=== PATIENT | female | born 1955 | race Caucasian/White ===

== ENCOUNTER 2016-11-01 22:42 | Emergency (ER) | payer OTHER ==
[~2016-11-01] VITALS: Ht 172.7 cm; Wt 89.0 kg
[~2016-11-01 22:42] MED LIST: IBUP800 PO; PERC5TAB12 PO; TAMS.4 PO
[2016-11-01 22:44] VITALS: BP 141/87; PULSE 100; RESP 20; TEMP 98.5; O2SAT 96
[2016-11-01] MEDS ORDERED: ONDANSETRON HCL 4 MG/2 ML VIAL IVP ONE (23:00)
[2016-11-01] MEDS ORDERED: SODIUM CHLORIDE 0.9% FLUSH 5 ML FLUSH IVF PRN (23:00)
[2016-11-01 23:01] VITALS: PULSE 100; RESP 18; O2SAT 95
[2016-11-01] MEDS ORDERED: MULT-65 PO ×2 (23:01)
[2016-11-01] MEDS: SODIUM CHLOR 0.9% 1000 ML INJ 1,000 ML IV SCH (23:13)
[2016-11-01 23:26] LABS: AUTOMATED NEUTROPHIL # 11.8 TH/MM3 (1.8-7.7); BASOPHIL # 0.1 TH/MM3 (0-0.2); BASOPHIL % 0.4 % (0.0-2.0); EOSINOPHIL # 0.2 TH/MM3 (0-0.4); EOSINOPHIL % 1.2 % (0.0-4.0); HEMATOCRIT 41.9 % (35.0-46.0); HEMO FLAGS DIFF FINAL; LYMPH % 10.8 % (9.0-44.0); LYMPHOCYTE # 1.6 TH/MM3 (1.0-4.8); MEAN CELL VOLUME 90.4 FL (80.0-100.0); MEAN CORPUSCULAR HEMOGLOBIN 30.3 PG (27.0-34.0); MEAN CORPUSCULAR HGB CONC 33.6 % (32.0-36.0); NEUT % 80.6 % (16.0-70.0); PLATELET COUNT 278 TH/MM3 (150-450); RED BLOOD COUNT 4.63 MIL/MM3 (4.00-5.30); RED CELL DISTRIBUTION WIDTH 13.7 % (11.6-17.2); WHITE BLOOD COUNT 14.7 TH/MM3 (4.0-11.0)
[2016-11-01 23:27] LABS: BLOOD, URINE TRACE (NEG); COMMENT (UR) CULT NOT INDICATED; CULTURE IF INDICATED CULT NOT INDICATED; GLUCOSE,URINE NEG (NEG); KETONE, URINE NEG (NEG); MUCUS URINE FEW /lpf (OCC); NITRITE,URINE NEG (NEG); PH, URINE 6.5 (5.0-8.5); SQUAMOUS EPITHELIAL CELL URINE 5 /hpf (0-5); URINE COLOR YELLOW (YELLW/STRAW)
[2016-11-01 23:41] LABS: ALT (GPT) 23 U/L (10-53); ANION GAP 9 MEQ/L (5-15); APTT (PATIENT) 26.4 SEC (24.3-30.1); AST (GOT) 14 U/L (15-37); BICARBONATE 24.6 MEQ/L (21.0-32.0); BLOOD UREA NITROGEN 19 MG/DL (7-18); CHLORIDE 109 MEQ/L (98-107); GLOMERULAR FILTRATION RATE 112 ML/MIN (>89); INTERNATIONAL NORMALIZED RATIO 0.9 RATIO; POTASSIUM 3.4 MEQ/L (3.5-5.1); PROTHROMBIN TIME - PATIENT 10.4 SEC (9.8-11.6); SODIUM (NA) 143 MEQ/L (136-145)
[2016-11-01 23:44] LABS: ALKALINE PHOSPHATASE 94 U/L (45-117); TOTAL BILIRUBIN ADULT 0.3 MG/DL (0.2-1.0)
[2016-11-01] MEDS ORDERED: KETOROLAC TROMETHAMINE 30 MG/ML (IVP) VIAL IV PUSH ONE (23:45)
--- NOTE | 2016-11-01 23:47 | PD ---
HPI Chief Complaint: GI Complaint Time Seen by Provider: 22:56 Travel History International Travel<30 days: No Contact w/Intl Traveler<30days: No Traveled to known affect area: No History of Present Illness HPI The patient is 60 year old female who presents to the [facility] emergency department with a history of abdominal pain that began at approximate 5 AM today. She reports that the abdominal pain is in the center of her abdomen and left lower quadrant. She reports that the pain is similar to when she's had diverticulitis in the past. She reports that she was diagnosed with diverticulitis 3 years ago. She reports that she was seen by Dr. Lopez for it. She denies having a primary care physician. She reports that over the holiday she did have some dietary indiscretions. She reports that today she's had diarrhea too many times to count. She reports that her stool is brown in color. She denies having any blood in her stool or mucus in her stool. She denies having any sick contacts, recent foreign travel, or antibiotic use in the last 3 months. She reports that she's had nausea and vomiting times one today. The patient reports that she's had a subjective fever today. The patient denies any recent cough, congestion, neck pain, chest pain, shortness of breath, urinary symptoms, or neurologic symptoms. [facility] Past Medical History Narrative Medical The patient's past medical history is significant for diverticulitis, history of a kidney stone. 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) Cardiovascular Problems: Yes High Cholesterol: No Chest Pain: No Congestive Heart Failure: No COPD: No Cerebrovascular Accident: No Diabetes: No Diminished Hearing: No Endocrine: No Gastrointestinal Disorders: Yes (nausea and vomiting currently) GERD: Yes Genitourinary: Yes (just current stone and UTI) Hepatitis: No Hiatal Hernia: No Immune Disorder: No Kidney Stones: No Musculoskeletal: Yes (two knee replacements) Neurologic: No Psychiatric: No Reproductive: No Respiratory: No Immunizations Current: Yes Migraines: No Renal Failure: No Seizures: No Sleep Apnea: No Thyroid Disease: No Ulcer: No Tetanus Vaccination: < 5 Years Influenza Vaccination: No Past Surgical History Narrative Surgical The patient's past surgical history is significant for a ureteral stent placement, lithotripsy. Abdominal Surgery: No AICD: No Body Medical Devices: knee replacements Cardiac Surgery: No Ear Surgery: No Endocrine Surgery: No Eye Surgery: No Genitourinary Surgery: No Gynecologic Surgery: Yes (PARTIAL HYSTERECTOMY) Hysterectomy: Yes Joint Replacement: Yes (BILAT KNEE) Oral Surgery: Yes (TONSILLECTOMY ) Pacemaker: No Thoracic Surgery: No Tonsillectomy: Yes Other Surgery: Yes (knee replacements, hysterectomy and rotator cuff) Social History Alcohol Use: No Tobacco Use: No Substance Use: No Allergies-Medications (Allergen,Severity, Reaction): Coded Allergies: Morphine (Verified Allergy, Severe, nausea and vomiting, 11/01/16) Percocet (Verified Allergy, Severe, nausea and vomiting, 11/01/16) Reported Meds & Prescriptions Reported Meds & Active Scripts Active Reported Multi-Vitamin Daily (Multiple Vitamin) 1 Tab Tab 1 Tab PO DAILY Review of Systems Except as stated in HPI: all other systems reviewed are Neg General / Constitutional: No: Fever Eyes: No: Visual changes HENT: No: Headaches Cardiovascular: No: Chest Pain or Discomfort Respiratory: No: Shortness of Breath Gastrointestinal: Positive: Nausea, Vomiting, Diarrhea, Abdominal Pain, Changes in Bowel Habits, No: Indigestion, Loss of Appetite Genitourinary: No: Dysuria Musculoskeletal: No: Pain Skin: No Rash Neurologic: No: Weakness Psychiatric: No: Depression Endocrine: No: Polydipsia Hematologic/Lymphatic: No: Easy Bruising Physical Exam Narrative General: The patient is a well-developed well-nourished female, uncomfortable appearing on examination, holding her central abdomen. Head and Neck exam: Head is normocephalic atraumatic. Eyes: EOMI, pupils are equal round and reactive to light. Nose: Midline septum with pink mucous membranes Mouth: Dentition unremarkable. Moist mucus membranes. Posterior oropharynx is not erythematous. No tonsillar hypertrophy. Uvula midline. Airway patent. Neck: No palpable lymphadenopathy. No nuchal rigidity. No thyromegaly. Cardiovascular: Regular rate and rhythm without murmurs, gallops, or rubs. No pulse deficit to the extremities. Lungs: Clear to auscultation bilaterally. No wheezes, rhonchi, or rales. Abdomen: Soft, with tenderness on palpation in the center abdomen periumbilical, no other tenderness on palpation. No tenderness on palpation of McBurney's point. No guarding, rebound, or rigidity. Negative Mobile sign. Normal bowel sounds are audible. Extremities: No clubbing, cyanosis, or edema. 2+ pulses in all 4 extremities. No calf tenderness on palpation. Back: No spinous process tenderness to palpation. No costovertebral angle tenderness to palpation. Neurologic Exam: Grossly nonfocal. Skin Exam: No rash noted. Intact skin that is warm and dry. Data Data Last Documented VS Vital Signs Date Time Temp Pulse Resp B/P Pulse Ox O2 Delivery O2 Flow Rate FiO2 11/01/16 23:01 100 18 95 11/01/16 22:44 98.5 141/87 Room Air Orders Complete Blood Count With Diff (11/01/16 22:56) Comprehensive Metabolic Panel (11/01/16 22:56) Lipase (11/01/16 22:56) Prothrombin Time / Inr (Pt) (11/01/16 22:56) Act Partial Throm Time (Ptt) (11/01/16 22:56) Urinalysis - C+S If Indicated (11/01/16 22:56) Ct Abd/Pel W Iv Contrast(Rout) (11/01/16 22:56) Iv Access Insert/Monitor (11/01/16 22:56) Ecg Monitoring (11/01/16 22:56) Oximetry (11/01/16 22:56) Ondansetron Inj (Zofran Inj) (11/01/16 23:00) Sodium Chlor 0.9% 1000 Ml Inj (Ns 1000 M (11/01/16 22:56) Sodium Chloride 0.9% Flush (Ns Flush) (11/01/16 23:00) Electrocardiogram (11/01/16 22:56) C-Reactive Protein (Crp) (11/01/16 22:56) Ketorolac Inj (Toradol Inj) (11/01/16 23:45) Iohexol 350 Inj (Omnipaque 350 Inj) (11/01/16 23:59) Levofloxacin (Levaquin) (11/02/16 09:00) Metronidazole 500 Mg Inj (Flagyl 500 Mg (11/02/16 01:30) Sodium Chlor 0.9% 1000 Ml Inj (Ns 1000 M (11/02/16 01:30) Labs Laboratory Tests Test 11/01/16 23:10 White Blood Count 14.7 TH/MM3 Red Blood Count 4.63 MIL/MM3 Hemoglobin 14.0 GM/DL Hematocrit 41.9 % Mean Corpuscular Volume 90.4 FL Mean Corpuscular Hemoglobin 30.3 PG Mean Corpuscular Hemoglobin 33.6 % Concent Red Cell Distribution Width 13.7 % Platelet Count 278 TH/MM3 Mean Platelet Volume 8.8 FL Neutrophils (%) (Auto) 80.6 % Lymphocytes (%) (Auto) 10.8 % Monocytes (%) (Auto) 7.0 % Eosinophils (%) (Auto) 1.2 % Basophils (%) (Auto) 0.4 % Neutrophils # (Auto) 11.8 TH/MM3 Lymphocytes # (Auto) 1.6 TH/MM3 Monocytes # (Auto) 1.0 TH/MM3 Eosinophils # (Auto) 0.2 TH/MM3 Basophils # (Auto) 0.1 TH/MM3 CBC Comment DIFF FINAL Differential Comment Prothrombin Time 10.4 SEC Prothromb Time International 0.9 RATIO Ratio Activated Partial 26.4 SEC Thromboplast Time Urine Color YELLOW Urine Turbidity HAZY Urine pH 6.5 Urine Specific [place] 1.010 Urine Protein NEG mg/dL Urine Glucose (UA) NEG mg/dL Urine Ketones NEG mg/dL Urine Occult Blood TRACE Urine Nitrite NEG Urine Bilirubin NEG Urine Urobilinogen LESS THAN 2.0 MG/DL Urine Leukocyte Esterase TRACE Urine RBC 2 /hpf Urine WBC 3 /hpf Urine Squamous Epithelial 5 /hpf Cells Urine Mucus FEW /lpf Microscopic Urinalysis Comment CULT NOT INDICATED Sodium Level 143 MEQ/L Potassium Level 3.4 MEQ/L Chloride Level 109 MEQ/L Carbon Dioxide Level 24.6 MEQ/L Anion Gap 9 MEQ/L Blood Urea Nitrogen 19 MG/DL Creatinine 0.55 MG/DL Estimat Glomerular Filtration 112 ML/MIN Rate Random Glucose 108 MG/DL Calcium Level 9.3 MG/DL Total Bilirubin 0.3 MG/DL Aspartate Amino Transf 14 U/L (AST/SGOT) Alanine Aminotransferase 23 U/L (ALT/SGPT) Alkaline Phosphatase 94 U/L C-Reactive Protein LESS THAN 0.29 MG/DL Total Protein 7.3 GM/DL Albumin 4.0 GM/DL Lipase 228 U/L [facility] Medical Decision Making Medical Screen Exam Complete: Yes Emergency Medical Condition: Yes Medical Record Reviewed: Yes Differential Diagnosis Diverticulitis, versus pancreatitis, versus acute cholecystitis, versus biliary colic, versus kidney stone, versus pyelonephritis Narrative Course During the course of the patients emergency department visit, the patients history, examination, and differential diagnosis were reviewed with the patient. The patient had IV access obtained and blood work sent for analysis. An EKG was done. The patient was placed on a chip person with oximetry and blood pressure monitoring. The patient's EKG shows a sinus rhythm heart rate 96 ) no branch block, left anterior fascicular block, this is compared to a prior EKG done at this facility in April 2016 and it is unchanged. The patient was provided normal saline 1 L IV fluid bolus, Toradol for pain, Zofran for nausea. The patients laboratory studies were reviewed and remarkable for a white count of 14.7, hemoglobin 14, platelets 278 with 80.6 neutrophils. CMP is remarkable for potassium of 3.4, chloride 109, BUN 19, glucose 108, AST 14, C- reactive protein less than 0.29, lipase 228, PT PTT unremarkable, urinalysis shows trace occult blood trace leukocyte esterase otherwise unremarkable. Radiology studies were reviewed and remarkable for CT scan of the abdomen and pelvis reveals mild inflammatory process involving the splenic flexure, no obstruction perforation or abscess, long-term stable 2.3 cm splenic artery aneurysm. The patient was started on Levaquin 500 mg by mouth times one, Flagyl 500 mg IV. The patient was given an additional normal saline 1 L IV fluid bolus. The patient's results were discussed with her, her questions were answered. The patient will be given a prescription for Cipro and Flagyl and discharged home to follow-up with her colorectal specialist, Dr. Lopez. The patient is resting comfortably and feels better, is alert and in no distress. The patients results and examination findings were discussed with the patient. The repeat examination is unremarkable and benign. The history, exam, diagnostic testing, and current condition do not suggest any significant pathology to warrant further testing, continued ED treatment, admission, or surgical evaluation at this point. The vital signs have been stable. The patient does not have uncontrollable pain, intractable vomiting, or other significant symptoms. The patient's condition is stable and appropriate for discharge. The patient will pursue further outpatient evaluation with a primary care physician or other designated or consulting physician as indicated in the discharge instructions. The patient expressed understanding and was agreeable with this plan. Diagnosis Primary Impression: Diverticulitis large intestine Qualified Code: K57.32 - Diverticulitis of large intestine without perforation or abscess without bleeding Referrals: Octavia Lopez MD 2 days Patient Instructions: Diverticulitis (ED), General Instructions Scripts Ondansetron Odt (Zofran Odt)4 Mg Tab4 Mg SL Q6HR PRN (Nausea/Vomiting) #7 TAB Ref 0 Prov:Shauna Valenzuela MD 11/02/16 Metronidazole (Flagyl)500 Mg Dxt507 Mg PO TID 7 Days Ref 0 Prov:Shauna Valenzuela MD 11/02/16 Ciprofloxacin (Cipro)500 Mg Mku675 Mg PO BID 7 Days Ref 0 Prov:Shauna Valenzuela MD 11/02/16 Disposition: 01 DISCHARGE HOME Condition: Stable Shauna Valenzuela MD Nov 01, 2016 23:47
[2016-11-01] MEDS ORDERED: IOHEXOL 350 MG/ML 10 ML VIAL (for RAD DIAG) IV ONE (23:59)
[2016-11-02] MEDS: SODIUM CHLOR 0.9% 1000 ML INJ 1,000 ML IV SCH ×2 (00:14→01:45)
--- NOTE | 2016-11-02 00:31 | RADRPT ---
EXAM DATE/TIME: 11/01/2016 23:57 [facility] COMPARISON: CT ABDOMEN & PELVIS W CONTRAST, November 24, 2013, 13:35. CT ABDOMEN & PELVIS W CONTRAST, April 24 16, 20:19. INDICATIONS : Abdominal pain with nausea, vomiting and diarrhea. IV CONTRAST: 91 cc Omnipaque 350 (iohexol) IV ORAL CONTRAST: No oral contrast ingested. RADIATION DOSE: 17.42 CTDIvol (mGy) MEDICAL HISTORY : Gastroesophageal reflux disease. Renal calculi. SURGICAL HISTORY : Hysterectomy. ENCOUNTER: Initial ACUITY: 1 day PAIN SCALE: 8/10 LOCATION: Bilateral abdomen. TECHNIQUE: Volumetric scanning of the abdomen and pelvis was performed. Using automated exposure control and ad justment of the mA and/or kV according to patient size, radiation dose was kept as low as reasonably achievable to obtain optimal diagnostic quality images. FINDINGS: LOWER LUNGS: The visualized lower lungs are clear. LIVER: Homogeneous density without lesion. There is no dilation of the biliary tree. No calcified gallston es. SPLEEN: Normal size without lesion. A 2.3 cm aneurysm is seen involving the splenic artery. This is a long-te rm stable. PANCREAS: Within normal limits. KIDNEYS: Normal in size and shape. There is no mass, stone or hydronephrosis. Long-term stable right renal cy sts. ADRENAL GLANDS: Within normal limits. VASCULAR: There is no aortic aneurysm. BOWEL/MESENTERY: There is mild wall thickening involving the splenic flexure. No stranding in the adjacent fat. Scatte red diverticuli are noted. Small bowel and stomach are unremarkable. ABDOMINAL WALL: Within normal limits. RETROPERITONEUM: There is no lymphadenopathy. BLADDER: No wall thickening or mass. REPRODUCTIVE: Within normal limits. INGUINAL: There is no lymphadenopathy or hernia. MUSCULOSKELETAL: Within normal limits for patient age. CONCLUSION: 1. Mild inflammatory process involving the splenic flexure. No obstruction, perforation, or abscess. 2. Long-term stable 2.3 cm splenic artery aneurysm. Edmond Griffin Jr., MD on November 02, 2016 at 0:25 Board Certified Radiologist. This report was verified electronically.
[2016-11-02] MEDS ORDERED: ZOFR4TAB3 SL (01:30)
[2016-11-02] MEDS ORDERED: metroNIDAZOLE 500 MG INJ 100 ML IV ONE (01:30)
[2016-11-02] MEDS ORDERED: SODIUM CHLOR 0.9% 1000 ML INJ 1,000 ML IV ONE (01:30)
[2016-11-02] MEDS ORDERED: METR-1 PO (01:30)
[2016-11-02] MEDS ORDERED: CIPR-9 PO (01:30)
[2016-11-02] MEDS ORDERED: LEVOFLOXACIN 500 MG TAB PO SCH (09:00)
--- NOTE | 2016-11-02 18:25 | EKG ---
Date Performed: 11/01/2016 Time Performed: 23:08:44 PTAGE: 60 years EKG: Sinus rhythm RIGHT BUNDLE BRANCH BLOCK LEFT ANTERIOR FASCICULAR BLOCK Since previous tracing, no significant calix ge noted ABNORMAL ECG PREVIOUS TRACING : 04/25/2016 10.18 DOCTOR: Roxann Hutton Interpretating Date/Time 11/02/2016 18:23:12
[2016-11-03] MEDS ORDERED: CIPR-9 PO (15:58)
[2016-11-03] MEDS ORDERED: ZOFR4TAB3 SL (15:58)
[2016-11-03] MEDS ORDERED: DICY10 PO (15:58)
[2016-11-03] MEDS ORDERED: METR-1 PO (15:58)
== END 2016-11-02 02:19 | disposition home or self-care (01) ==
LOC: NEPE 22:42
DX: K57.32 Diverticulitis of large intestine without perforation or abscess without bleeding (principal); M19.90 Unspecified osteoarthritis, unspecified site; K21.9 Gastro-esophageal reflux disease without esophagitis; Z96.653 Presence of artificial knee joint, bilateral; Z96.698 Presence of other orthopedic joint implants; Z87.442 Personal history of urinary calculi; R94.31 Abnormal electrocardiogram [ECG] [EKG]
CPT/HCPCS: 74177; 80053; 81001; 83690; 85025; 85610; 85730; 86140; 93005; 96361; 96374; 96375; 99284; J1885; J2405; J7030; Q9967

== ENCOUNTER 2016-11-02 11:19 | Observation (INO) | payer OTHER ==
[~2016-11-02] VITALS: Ht 172.7 cm; Wt 90.5 kg
[~2016-11-02 11:19] MED LIST changes: +CIPR-9 PO; +METR-1 PO; +MULT-65 PO; +ZOFR4TAB3 SL
[2016-11-02 11:22] VITALS: BP 142/86; PULSE 107; RESP 14; TEMP 98.7; O2SAT 96
[2016-11-02] MEDS ORDERED: SODIUM CHLOR 0.9% 1000 ML INJ 1,000 ML IV SCH ×2 (11:48)
--- NOTE | 2016-11-02 11:56 | PD ---
HPI Chief Complaint: GI Complaint Time Seen by Provider: 11:31 Travel History International Travel<30 days: No Contact w/Intl Traveler<30days: No Traveled to known affect area: No History of Present Illness HPI This 5-year-old woman who is been sick with nausea vomiting diarrhea ongoing for several days. She has a history diverticulitis with abscess in the past. She states she's been nauseous for a little bit but then 2 days ago started getting nausea and vomiting more severe so she was severe abdominal pain followed by copious watery diarrhea. She was seen in the emergency department last night where she had a CT scan that showed some inflammation of the splenic flexure of the colon and she was diagnosed with diverticulitis. She is given medications but was unable to fill them in the middle the night because of pharmacy was closed. She states she's had continuous nausea vomiting, unable tolerate by mouth, and copious watery diarrhea since. She presents back to emergency department complaining same symptoms as well as ongoing abdominal pain. History Past Medical History Narrative Medical History of diverticulitis Social History Alcohol Use: No Tobacco Use: No Allergies-Medications (Allergen,Severity, Reaction): Coded Allergies: Morphine (Verified Allergy, Severe, nausea and vomiting, 11/02/16) Percocet (Verified Allergy, Severe, nausea and vomiting, 11/02/16) Reported Meds & Prescriptions Reported Meds & Active Scripts Active Zofran Odt (Ondansetron Odt) 4 Mg Tab 4 Mg SL Q6HR PRN Flagyl (Metronidazole) 500 Mg Tab 500 Mg PO TID 7 Days Cipro (Ciprofloxacin HCl) 500 Mg Tab 500 Mg PO BID 7 Days Reported Multi-Vitamin Daily (Multiple Vitamin) 1 Tab Tab 1 Tab PO DAILY Review of Systems Except as stated in HPI: all other systems reviewed are Neg Physical Exam Narrative GENERAL: Well-appearing 60-year-old woman, no acute distress. SKIN: Warm and dry. HEAD: Atraumatic. Normocephalic. NECK: Trachea midline. No JVD. CARDIOVASCULAR: Regular rate and rhythm. No murmur appreciated. RESPIRATORY: No accessory muscle use. Clear to auscultation. Breath sounds equal bilaterally. GASTROINTESTINAL: Abdomen soft, non-tender, nondistended. Hepatic and splenic margins not palpable. MUSCULOSKELETAL: No obvious deformities. No edema. NEUROLOGICAL: Awake and alert. No obvious cranial nerve deficits. Motor grossly within normal limits. Normal speech. Data Data Last Documented VS Vital Signs Date Time Temp Pulse Resp B/P Pulse Ox O2 Delivery O2 Flow Rate FiO2 11/02/16 11:52 16 11/02/16 11:22 98.7 107 142/86 96 Room Air Orders Basic Metabolic Panel (Bmp) (11/02/16 11:48) Complete Blood Count With Diff (11/02/16 11:48) Iv Access Insert/Monitor (11/02/16 11:48) Ondansetron Inj (Zofran Inj) (11/02/16 12:00) Sodium Chlor 0.9% 1000 Ml Inj (Ns 1000 M (11/02/16 11:48) Sodium Chlor 0.9% 1000 Ml Inj (Ns 1000 M (11/02/16 11:48) Sodium Chloride 0.9% Flush (Ns Flush) (11/02/16 12:00) Dicyclomine Inj (Bentyl Inj) (11/02/16 12:00) Admit Order (Ed Use Only) (11/02/16 ) Labs Laboratory Tests Test 11/02/16 12:00 White Blood Count 13.1 TH/MM3 Red Blood Count 4.83 MIL/MM3 Hemoglobin 14.7 GM/DL Hematocrit 43.4 % Mean Corpuscular Volume 89.8 FL Mean Corpuscular Hemoglobin 30.5 PG Mean Corpuscular Hemoglobin 34.0 % Concent Red Cell Distribution Width 13.6 % Platelet Count 271 TH/MM3 Mean Platelet Volume 9.1 FL Neutrophils (%) (Auto) 84.3 % Lymphocytes (%) (Auto) 6.9 % Monocytes (%) (Auto) 8.3 % Eosinophils (%) (Auto) 0.1 % Basophils (%) (Auto) 0.4 % Neutrophils # (Auto) 11.0 TH/MM3 Lymphocytes # (Auto) 0.9 TH/MM3 Monocytes # (Auto) 1.1 TH/MM3 Eosinophils # (Auto) 0.0 TH/MM3 Basophils # (Auto) 0.1 TH/MM3 CBC Comment DIFF FINAL Differential Comment Sodium Level 140 MEQ/L Potassium Level 3.5 MEQ/L Chloride Level 106 MEQ/L Carbon Dioxide Level 25.4 MEQ/L Anion Gap 9 MEQ/L Blood Urea Nitrogen 13 MG/DL Creatinine 0.54 MG/DL Estimat Glomerular Filtration 115 ML/MIN Rate Random Glucose 137 MG/DL Calcium Level 9.0 MG/DL [facility] Medical Decision Making Medical Screen Exam Complete: Yes Emergency Medical Condition: Yes Interpretation(s) LABS: CBC remarkable for mild leukocytosis. BMP is unremarkable. Differential Diagnosis Diverticulitis, colitis, infection, C. difficile, other Narrative Course Medical decision making INITIAL: 60-year-old with nausea vomiting diarrhea abdominal pain, CT scan shows a little bit of inflammation splenic flexure of the colon, leukocytosis, here with ongoing symptoms. She was well. She has generalized abdominal tenderness. Possibly diverticulitis versus colitis. No recent antibiotic use or healthcare exposures to suggest C. difficile. We'll repeat basic labs, IV fluids, pain medicine, likely admission for observation. Diagnosis Primary Impression: Diverticulitis large intestine Qualified Code: K57.32 - Diverticulitis of large intestine without perforation or abscess without bleeding Additional Impression: Dehydration Admitting Information Admitting Physician Requests: Observation Zoran Diallo MD Nov 02, 2016 11:56 Zoran Diallo MD Nov 02, 2016 11:56
[2016-11-02] MEDS ORDERED: SODIUM CHLORIDE 0.9% FLUSH 5 ML FLUSH IVF PRN (12:00)
[2016-11-02] MEDS ORDERED: DICYCLOMINE HCL 20 MG/2 ML VIAL IM ONE (12:00)
[2016-11-02] MEDS ORDERED: ONDANSETRON HCL 4 MG/2 ML VIAL IVP ONE (12:00)
[2016-11-02 12:18] LABS: BASOPHIL # 0.1 TH/MM3 (0-0.2); BASOPHIL % 0.4 % (0.0-2.0); EOSINOPHIL % 0.1 % (0.0-4.0); HEMATOCRIT 43.4 % (35.0-46.0); HEMO FLAGS DIFF FINAL; LYMPH % 6.9 % (9.0-44.0); LYMPHOCYTE # 0.9 TH/MM3 (1.0-4.8); MEAN CELL VOLUME 89.8 FL (80.0-100.0); MEAN CORPUSCULAR HEMOGLOBIN 30.5 PG (27.0-34.0); MONO % 8.3 % (0.0-8.0); NEUT % 84.3 % (16.0-70.0); PLATELET COUNT 271 TH/MM3 (150-450); RED BLOOD COUNT 4.83 MIL/MM3 (4.00-5.30); RED CELL DISTRIBUTION WIDTH 13.6 % (11.6-17.2); WHITE BLOOD COUNT 13.1 TH/MM3 (4.0-11.0)
[2016-11-02 12:34] LABS: BICARBONATE 25.4 MEQ/L (21.0-32.0); POTASSIUM 3.5 MEQ/L (3.5-5.1)
--- NOTE | 2016-11-02 16:26 | HHI.HP ---
HPI Service Family Medicine Primary Care Physician No Primary Care Physician Admission Diagnosis diverticulitis/colitis, dehydration Diagnoses: International Travel<30 Days: No Contact w/Intl Traveler<30days: No Known Affected Area: No History of Present Illness This is a 60-year-old female with a past medical history of diverticulitis returns to [facility] less than one day after being seen and discharged for the same symptoms. The patient states she started having pain approximately 2 days ago "at 5 AM." Her pain was mid abdominal, 10 out of 10, constant achy, no radiation. She has vomited and had diarrhea "countless times." She has not been able to keep anything down by mouth since 10/31. Everything she eats or drinks she vomits. She was first diagnosed with diverticulitis in 2012. She follows with a colorectal surgeon Dr. Lopez. He was seen at [facility] on 11/01/[address] was performed which showed mild inflammatory process involving the splenic flexure. No obstruction, perforation, or abscess. She was sent home on Levaquin and metronidazole. She was instructed to follow with her colorectal specialist Dr. Lopez. However, she returned because of the recurrent nausea , vomiting, abdominal pain. (Roland Yost MD R2) Review of Systems Constitutional: COMPLAINS OF: Fever (99.0-100.0 at home), Chills Eyes: DENIES: Blurred vision, Diplopia Ears, nose, mouth, throat: DENIES: Tinnitus, Hearing loss Respiratory: DENIES: Cough, Shortness of breath Cardiovascular: DENIES: Chest pain, Syncope Gastrointestinal: COMPLAINS OF: Abdominal pain, Diarrhea, Nausea, Vomiting, DENIES: Bloody stools Genitourinary: DENIES: Urinary frequency, Urinary incontinence, Hematuria, Dysuria Neurologic: DENIES: Abnormal gait, Headache Psychiatric: DENIES: Anxiety, Confusion (Roland Yost MD R2) Past Family Social History Past Medical History Diverticulitis- 2012, follows with Colorectal Dr. Lopez Kidney Stone Past Surgical History Hysterectomy and tonsillectomy Rotator cuff Knee replacement bilaterally Reported Medications Reported Meds & Active Scripts Active Zofran Odt (Ondansetron Odt) 4 Mg Tab 4 Mg SL Q6HR PRN Flagyl (Metronidazole) 500 Mg Tab 500 Mg PO TID 7 Days Cipro (Ciprofloxacin HCl) 500 Mg Tab 500 Mg PO BID 7 Days Reported Multi-Vitamin Daily (Multiple Vitamin) 1 Tab Tab 1 Tab PO DAILY (Roland Yost MD R2) Allergies: Coded Allergies: Morphine (Verified Allergy, Severe, nausea and vomiting, 11/02/16) Percocet (Verified Allergy, Severe, nausea and vomiting, 11/02/16) Active Ordered Medications Active Medications Dicyclomine HCl (Bentyl Inj) 20 mg ONCE ONCE IM Last administered on 11/02/16 12:02; Admin Dose 20 MG; Start 11/02/16 at 12:00; Stop 11/02/16 at 12:01; Status DC IV Flush (NS Flush) 2 ml UNSCH PRN IVF; Start 11/02/16 at 12:00 Ondansetron HCl 4 mg 4 mg ONCE ONCE IVP Last administered on 11/02/16 12:02; Admin Dose 4 MG; Start 11/02/16 at 12:00; Stop 11/02/16 at 12:01; Status DC Sodium Chloride 1,000 ml @ 125 mls/hr Q8H IV Last administered on 11/02/16 12: 57; Admin Dose 125 MLS/HR; Start 11/02/16 at 11:48; Stop 11/02/16 at 19:47 Sodium Chloride (NS 1000 ml Inj) 1,000 ml @ 1,000 mls/hr Q1H IV Last administered on 11/02/16 11:48; Admin Dose 1,000 MLS/HR; Start 11/02/16 at 11:48 ; Stop 11/02/16 at 12:47; Status DC Family History Mom: brain aneurysm Dad: healthy (passed from car accident) 3 children; oldest with MS; other 2 healthy Lives with Social History Never smoker Glass of wine every now and then No illicits drugs (Roland Yost MD R2) Physical Exam Vital Signs Vital Signs Date Time Temp Pulse Resp B/P Pulse Ox O2 Delivery O2 Flow Rate FiO2 11/02/16 11:52 16 11/02/16 11:22 98.7 107 14 142/86 96 Room Air Physical Exam GENERAL: This is a well-nourished, well-developed patient, in no apparent distress. SKIN: No rashes, ecchymoses or lesions. Cool and dry. HEAD: Atraumatic. Normocephalic. No temporal or scalp tenderness. EYES: Pupils equal round and reactive. Extraocular motions intact. No scleral icterus. No injection or drainage. ENT: Nose without bleeding, purulent drainage or septal hematoma. Throat without erythema, tonsillar hypertrophy or exudate. Uvula midline. Airway patent. NECK: Trachea midline. No JVD or lymphadenopathy. Supple, nontender, no meningeal signs. CARDIOVASCULAR: Regular rate and rhythm without murmurs, gallops, or rubs. RESPIRATORY: Clear to auscultation. Breath sounds equal bilaterally. No wheezes , rales, or rhonchi. GASTROINTESTINAL: Abdomen soft, diffusely tender to palpation in mid abdomen, nondistended. No hepato-splenomegaly, or palpable masses. No guarding. MUSCULOSKELETAL: Extremities without clubbing, cyanosis, or edema. No joint tenderness, effusion, or edema noted. No calf tenderness. Negative Homans sign bilaterally. NEUROLOGICAL: Awake and alert. Cranial nerves II through XII intact. Motor and sensory grossly within normal limits. Five out of 5 muscle strength in all muscle groups. Normal speech. Laboratory Laboratory Tests Test 11/02/16 12:00 White Blood Count 13.1 Red Blood Count 4.83 Hemoglobin 14.7 Hematocrit 43.4 Mean Corpuscular Volume 89.8 Mean Corpuscular Hemoglobin 30.5 Mean Corpuscular Hemoglobin 34.0 Concent Red Cell Distribution Width 13.6 Platelet Count 271 Mean Platelet Volume 9.1 Neutrophils (%) (Auto) 84.3 Lymphocytes (%) (Auto) 6.9 Monocytes (%) (Auto) 8.3 Eosinophils (%) (Auto) 0.1 Basophils (%) (Auto) 0.4 Neutrophils # (Auto) 11.0 Lymphocytes # (Auto) 0.9 Monocytes # (Auto) 1.1 Eosinophils # (Auto) 0.0 Basophils # (Auto) 0.1 CBC Comment DIFF FINAL Differential Comment Sodium Level 140 Potassium Level 3.5 Chloride Level 106 Carbon Dioxide Level 25.4 Anion Gap 9 Blood Urea Nitrogen 13 Creatinine 0.54 Estimat Glomerular Filtration 115 Rate Random Glucose 137 Calcium Level 9.0 (Roland Yost MD R2) Result Diagram: 11/02/16 1200 11/02/[address] scan on 11/01/16-mild inflammatory process involving the splenic flexure. No obstruction, perforation, or abscess. (Roland Yost MD R2) Assessment and Plan Assessment and Plan 60-year-old female with known diverticulitis/colitis returns to [facility] with recurrent nausea, vomiting, abdominal pain. She will be admitted for these intractable symptoms and for antibiotic therapy. Code Status Full Discussed Condition With Dr. Priyank Key (Roland Yost MD R2) Attending Attestation Patient seen and examined. Case reviewed and discussed with the resident team. Agree with plan of care as discussed with me and documented in the resident note. (Maggie Yost MD) Problem List: (1) Diverticulitis large intestine Status: Acute Plan: CT scan on 11/01/2016 shows mild inflammatory process involving the splenic flexure. No obstruction, perforation, or abscess. She returns to [facility] with intractable nausea, vomiting, pain, and unable to keep anything by mouth -Ciprofloxacin 400 mg every 12 hours IV -Metronidazole 500 mg every 6 hours IV -Pain control: Dilaudid 1 mg every 3 hours when necessary pain 6-10, ibuprofen 600 mg every 8 hours pain 1-5. Dilaudid 0.5 mg IV breakthrough pain -Bentyl 20 mg by mouth 4 times a day -Normal saline at 140 ml/hr -She will need to make an appointment with her colorectal surgeon, Dr. Lopez as an outpatient. (2) FEN/PPX Status: Acute Plan: Fluids: Normal saline at 140 ML per hour Electrolyte: Monitor and replace when necessary Nutrition: Clear liquid diet; advance as tolerated Prophylaxis: Bilateral SCDs. (Roland Yost MD R2) Physician Certification 2 Midnight Certification Type: Admission for Inpatient Services Order for Inpatient Services The services are ordered in accordance with Medicare regulations or non- Medicare payer requirements, as applicable. In the case of services not specified as inpatient-only, they are appropriately provided as inpatient services in accordance with the 2-midnight benchmark. Estimated LOS (days): 2 days is the estimated time the patient will need to remain in the hospital, assuming treatment plan goals are met and no additional complications. Post-Hospital Plan: Home (Roland Yost MD R2) Problem Qualifiers (1) Diverticulitis large intestine: Qualified Code: K57.32 - Diverticulitis of large intestine without perforation or abscess without bleeding Roland Yost MD R2 Nov 02, 2016 16:26 Maggie Yost MD Nov 03, 2016 14:05
[2016-11-02] MEDS ORDERED: HYDROmorphone HCL PF 1 MG/ML VIAL IV PRN (17:15)
[2016-11-02] MEDS ORDERED: TEMAZEPAM 15 MG CAP PO PRN (17:15)
[2016-11-02] MEDS ORDERED: SODIUM CHLORIDE 0.9% FLUSH 5 ML FLUSH FLUSH PRN (17:15)
[2016-11-02] MEDS ORDERED: hydrALAZINE HCL 10 MG TAB PO PRN (17:15)
[2016-11-02] MEDS ORDERED: HYDROmorphone HCL PF 1 MG/ML VIAL IV PUSH PRN (17:15)
[2016-11-02] MEDS ORDERED: IBUPROFEN 600 MG TAB PO PRN (17:15)
--- NOTE | 2016-11-02 17:23 | HHI.FPPN ---
Subjective Remarks Pt. seen, examined and discussed with Drs. Key and Priyank. This is a 60 yo female with long history of diverticulitis who was seen in ED yesterday with severe abdominal pain, nausea and vomiting and sent home after midnight with scripts for pain and antibiotics, which she was unable to fill because it was the middle of the night. She returned to ED to day because of persisting severe pain, nausea and vomiting which was in mid- abdomen. Denies hematemesis or melena or hematochezia. Low grade fever and chills. History of hospitalizations for this in the past, is followed by Dr. Octavia Lopez. Sees an OB-SKIVER BOX TOE at [facility]-Box To[facility]. Hx of kidney stone. Hysterectomy in past, bilateral knee replacements and rotator cuff surgery. See H&P for this admission for past, family and social history. She lives with , cares for grands, doesn't work outside the home, negligible etoh, no tobacco or illicits. Hx of breast CA and testicular CA and MS in family. Objective Vitals Vital Signs Date Time Temp Pulse Resp B/P Pulse Ox O2 Delivery O2 Flow Rate FiO2 11/02/16 11:52 16 11/02/16 11:22 98.7 107 14 142/86 96 Room Air Result Diagram: 11/02/16 1200 11/02/[address] 11-01-16 showed inflammation in splenic flexure of colon Objective Remarks O. CONSTITUTIONAL/GEN: normally nourished, in distress with nausea and abdominal pain. EYES: conjunctiva normal, PERRLA, EOMI. ENT: Mouth and pharynx normal. MM slightly dry. NECK: thyroid midline, no lymphadenopathy. LUNGS: clear A-P, respiratory effort is normal. CARDIOVASCULAR: RR without murmur or gallop. No significant edema. GI/ABD: soft without masses, without organomegaly. BS +, tender midabdominal area with guarding to palpation. : no CVA tenderness NEURO: No focal deficits. SKIN: color normal, no rashes noted. HEME/LYMPH: no bruising, petechia or significant adenopathy MUSC: back is normal in appearance. Extremities are normal in appearance. PSYCH/MENTAL STATUS: Alert and oriented x 3. A/P Assessment and Plan 60 yo female with history of diverticulitis here with severe abdominal pain, nausea and vomiting Attending Attestation Patient seen and examined. Case reviewed and discussed with the resident team. Agree with plan of care as discussed with me and documented in the resident note. Maggie Yost MD Nov 02, 2016 17:23
[2016-11-02] MEDS: SODIUM CHLOR 0.9% 1000 ML INJ 1,000 ML IV SCH (17:25)
[2016-11-02] MEDS: ONDANSETRON HCL 4 MG/2 ML VIAL IV PUSH PRN (17:26)
[2016-11-02 17:46] VITALS: BP 130/66; PULSE 95; RESP 18; O2SAT 96
[2016-11-02 18:24] VITALS: BP 142/83; PULSE 97; RESP 20; TEMP 99; O2SAT 94
[2016-11-02] MEDS: DICYCLOMINE HCL 10 MG CAP PO SCH ×2 (18:40→21:03)
[2016-11-02] MEDS: CIPROFLOXACIN 400 MG PREMIX 200 ML IV SCH (18:57)
[2016-11-02] MEDS: SODIUM CHLORIDE 0.9% FLUSH 5 ML FLUSH FLUSH SCH (21:00)
[2016-11-02] MEDS: metroNIDAZOLE 500 MG INJ 100 ML IV SCH (21:03)
[2016-11-03] MEDS: SODIUM CHLOR 0.9% 1000 ML INJ 1,000 ML IV SCH ×2 (00:19→06:00)
[2016-11-03 00:24] VITALS: BP 138/64; PULSE 74; RESP 18; TEMP 97.8; O2SAT 97
[2016-11-03] MEDS: metroNIDAZOLE 500 MG INJ 100 ML IV SCH ×3 (02:06→13:46)
[2016-11-03] MEDS: ONDANSETRON HCL 4 MG/2 ML VIAL IV PUSH PRN ×2 (02:25→07:42)
[2016-11-03 04:22] VITALS: BP 130/67; PULSE 83; RESP 23; TEMP 98.8; O2SAT 98
[2016-11-03] MEDS: CIPROFLOXACIN 400 MG PREMIX 200 ML IV SCH (05:58)
[2016-11-03 07:27] LABS: AUTOMATED NEUTROPHIL # 5.8 TH/MM3 (1.8-7.7); BASOPHIL % 0.6 % (0.0-2.0); EOSINOPHIL # 0.1 TH/MM3 (0-0.4); EOSINOPHIL % 1.2 % (0.0-4.0); HEMATOCRIT 37.7 % (35.0-46.0); HEMO FLAGS DIFF FINAL; LYMPH % 20.4 % (9.0-44.0); LYMPHOCYTE # 1.7 TH/MM3 (1.0-4.8); MEAN CELL VOLUME 89.9 FL (80.0-100.0); MEAN CORPUSCULAR HEMOGLOBIN 30.3 PG (27.0-34.0); MEAN CORPUSCULAR HGB CONC 33.7 % (32.0-36.0); MONO % 8.1 % (0.0-8.0); NEUT % 69.7 % (16.0-70.0); PLATELET COUNT 228 TH/MM3 (150-450); RED CELL DISTRIBUTION WIDTH 13.5 % (11.6-17.2); WHITE BLOOD COUNT 8.2 TH/MM3 (4.0-11.0)
[2016-11-03] MEDS: DICYCLOMINE HCL 10 MG CAP PO SCH ×2 (07:41→13:45)
[2016-11-03] MEDS: SODIUM CHLORIDE 0.9% FLUSH 5 ML FLUSH FLUSH SCH (07:42)
[2016-11-03 07:44] VITALS: BP 157/88; PULSE 85; RESP 18; TEMP 98; O2SAT 95
[2016-11-03 07:48] LABS: ALKALINE PHOSPHATASE 85 U/L (45-117); ALT (GPT) 19 U/L (10-53); ANION GAP 10 MEQ/L (5-15); AST (GOT) 14 U/L (15-37); BICARBONATE 25.1 MEQ/L (21.0-32.0); BLOOD UREA NITROGEN 6 MG/DL (7-18); CHLORIDE 106 MEQ/L (98-107); GLOMERULAR FILTRATION RATE 145 ML/MIN (>89); SODIUM (NA) 141 MEQ/L (136-145); TOTAL BILIRUBIN ADULT 0.3 MG/DL (0.2-1.0)
[2016-11-03 07:58] LABS: POTASSIUM 2.7 MEQ/L (3.5-5.1)
[2016-11-03] MEDS ORDERED: POTASSIUM CHLORIDE 10 MEQ CAP PO ONE (08:30)
--- NOTE | 2016-11-03 10:04 | HHI.FPPN ---
Subjective Remarks No acute events overnight. Afebrile, vital signs stable. Patient reports that she is feeling approximately 50% better. She no longer has abdominal pain with guarding. She has tolerated water by mouth and will try clear liquid diet for breakfast this morning. (Marleny Celis MD R3) Objective Vitals Vital Signs Date Time Temp Pulse Resp B/P Pulse Ox O2 Delivery O2 Flow Rate FiO2 11/03/16 07:44 98.0 85 18 157/88 95 11/03/16 04:22 98.8 83 23 130/67 98 11/03/16 00:24 97.8 74 18 138/64 97 11/02/16 18:24 99.0 97 20 142/83 94 11/02/16 17:46 95 18 130/66 96 Room Air 11/02/16 11:52 16 11/02/16 11:22 98.7 107 14 142/86 96 Room Air (Marleny Celis MD R3) Result Diagram: 11/03/16 0634 11/03/16 0634 Objective Remarks Gen.: No acute distress Head: Normocephalic. Atraumatic. EENT: Pupils equal round and reactive to light. Nose without drainage. Airway intact. Throat without injection. Cardiovascular: Regular rate and rhythm. No murmurs, rubs or gallops. Respiratory: Lungs clear to auscultation bilaterally. No wheezes or rhonchi. Abdomen: Soft, nontender, nondistended. No peritoneal signs. No guarding. Musculoskeletal: No gross deformities. No edema. Skin: No obvious rashes or erythema. Neuro: Sensory and motor grossly intact. Cranial nerves II through XII grossly intact. Psych: Appropriate mood and affect (Marleny Celis MD R3) A/P Assessment and Plan 60-year-old female with known diverticulitis/colitis returns to [facility] with recurrent nausea, vomiting, abdominal pain. Discharge Planning To home today if patient tolerates by mouth (Marleny Celis MD R3) Attending Attestation Patient seen and examined. Case reviewed and discussed with the resident team. Agree with plan of care as discussed with me and documented in the resident note. (Maggie Yost MD) Problem List: (1) Diverticulitis large intestine Status: Acute Plan: CT scan on 11/01/2016 shows mild inflammatory process involving the splenic flexure. No obstruction, perforation, or abscess. She returns to [facility] with intractable nausea, vomiting, pain, and unable to keep anything by mouth -Ciprofloxacin 400 mg every 12 hours IV -Metronidazole 500 mg every 6 hours IV -Pain control: Dilaudid 1 mg every 3 hours when necessary pain 6-10, ibuprofen 600 mg every 8 hours pain 1-5. Dilaudid 0.5 mg IV breakthrough pain -Bentyl 20 mg by mouth 4 times a day -Normal saline at 140 ml/hr -She will need to make an appointment with her colorectal surgeon, Dr. Lopez as an outpatient. -If patient tolerates by mouth this morning, she will be discharged with by mouth Cipro and Flagyl as well as Bentyl and Zofran. (2) FEN/PPX Status: Acute Plan: Fluids: Normal saline at 140 ML per hour Electrolyte: Monitor and replace when necessary Nutrition: Clear liquid diet; advance as tolerated Prophylaxis: Bilateral SCDs. (Marleny Celis MD R3) Problem Qualifiers (1) Diverticulitis large intestine: Qualified Code: K57.32 - Diverticulitis of large intestine without perforation or abscess without bleeding Marleny Celis MD R3 Nov 03, 2016 10:04 Maggie Yost MD Nov 03, 2016 14:18
[2016-11-03 11:37] VITALS: BP 128/77; PULSE 81; RESP 17; TEMP 98.3; O2SAT 95
[2016-11-03] MEDS ORDERED: CIPR-9 PO (15:58)
[2016-11-03] MEDS ORDERED: ZOFR4TAB3 SL (15:58)
[2016-11-03] MEDS ORDERED: DICY10 PO (15:58)
[2016-11-03] MEDS ORDERED: METR-1 PO (15:58)
--- NOTE | 2016-11-03 15:59 | HHI.DCPOC ---
Discharge Care Plan Diagnosis: (1) Diverticulitis large intestine (2) Diverticular disease Goals to Promote Your Health * To prevent worsening of your condition and complications, please take your medications as prescribed. * To maintain your health at the optimal level, please follow up with your doctor as instructed. Directions to Meet Your Goals Take your medications as prescribed Follow your dietary instruction Follow activity as directed Keep your appointments as scheduled Take your immunizations and boosters as scheduled If your symptoms worsen call your PCP, if no PCP go to Urgent Care Center or Emergency Room Smoking is Dangerous to Your Health. Avoid second hand smoke Call the 24-hour hour crisis hotline for domestic abuse at Victor M Key MD R1 Nov 03, 2016 15:59
== END 2016-11-03 17:12 | disposition home or self-care (01) ==
LOC: NEPE 11:19 → NEDA 13:15 → NEPGCP 18:28
PROVIDERS: ADMIT Family Medicine; ATTEND Family Medicine
DX: K57.32 Diverticulitis of large intestine without perforation or abscess without bleeding (principal); E86.0 Dehydration; Z79.899 Other long term (current) drug therapy; Z87.442 Personal history of urinary calculi
CPT/HCPCS: 80048; 80053; 85025; 96361; 96372; 96374; 99284; G0378; J0500; J0744; J2405; J7030

== ENCOUNTER 2017-04-15 05:15 | Emergency (ER) | payer OTHER ==
[~2017-04-15] VITALS: Ht 172.7 cm; Wt 85.5 kg
[~2017-04-15 05:15] MED LIST changes: +DICY10 PO; -IBUP800 PO; -PERC5TAB12 PO; -TAMS.4 PO
[2017-04-15 05:20] VITALS: BP 133/84; PULSE 120; RESP 22; TEMP 98.2; O2SAT 100
[2017-04-15] MEDS ORDERED: ASPI325T PO (05:35)
--- NOTE | 2017-04-15 05:54 | PD ---
HPI Chief Complaint: Respiratory Symptoms Time Seen by Provider: 05:28 Travel History International Travel<30 days: No Contact w/Intl Traveler<30days: No Traveled to known affect area: No History of Present Illness HPI Is a 61 year-old woman presents to the emergency department complaining of shortness of breath. She states she was feeling fine when she wet the bed last night. She woke up to the bathroom and when she was walking she started short of breath, feel dizzy and lightheaded, palpitations. She states she never really felt like this before. She has a history of some occasional shortness of breath episodes. At this point she still feels nervous and anxious, and has some nausea. Denies any chest pain. No vomiting. No history of DVT PE. No leg swelling. She is no history of heart or lung disease. She states that she had a preop assessment a couple years ago for total knees was told that she has something abnormal EKG but wasn't sure what. She does endorse being under a lot of stress recently. History Past Medical History Narrative Medical Diverticulitis Influenza Vaccination: No Social History Alcohol Use: Yes (OCCASSIONALLY) Tobacco Use: No Allergies-Medications (Allergen,Severity, Reaction): Coded Allergies: Morphine (Verified Allergy, Severe, nausea and vomiting, 04/15/17) Percocet (Verified Allergy, Severe, nausea and vomiting, 04/15/17) Reported Meds & Prescriptions Reported Meds & Active Scripts Active Bentyl (Dicyclomine HCl) 10 Mg Cap 20 Mg PO QID Reported Aspirin 325 Mg Tab 650 Mg PO ONCE Multi-Vitamin Daily (Multiple Vitamin) 1 Tab Tab 1 Tab PO DAILY Review of Systems Except as stated in HPI: all other systems reviewed are Neg Physical Exam Narrative GENERAL: Well-appearing 61 year-old woman, no acute distress. SKIN: Focused skin assessment warm/dry. HEAD: Atraumatic. Normocephalic. EYES: Pupils equal and round. No scleral icterus. No injection or drainage. ENT: No nasal bleeding or discharge. Mucous membranes pink and moist. NECK: Trachea midline. No JVD. CARDIOVASCULAR: Heart rates over rapid. No murmurs. RESPIRATORY: No accessory muscle use. Clear to auscultation. Breath sounds equal bilaterally. GASTROINTESTINAL: Abdomen soft, non-tender, nondistended. Hepatic and splenic margins not palpable. MUSCULOSKELETAL: No obvious deformities. No edema. NEUROLOGICAL: Awake and alert. No obvious cranial nerve deficits. Motor grossly within normal limits. Normal speech. PSYCHIATRIC: Anxious appearing. Data Data Last Documented VS Vital Signs Date Time Temp Pulse Resp B/P Pulse Ox O2 Delivery O2 Flow Rate FiO2 04/15/17 06:35 99 Nasal Cannula 2 04/15/17 05:29 20 04/15/17 05:20 98.2 120 133/84 Orders Complete Blood Count With Diff (04/15/17 05:48) Comprehensive Metabolic Panel (04/15/17 05:48) D-Dimer (04/15/17 05:48) Magnesium (Mg) (04/15/17 05:48) Troponin I (04/15/17 05:48) Iv Access Insert/Monitor (04/15/17 05:48) Ecg Monitoring (04/15/17 05:48) Oximetry (04/15/17 05:48) Oxygen Administration (04/15/17 05:48) Chest, Single Ap (04/15/17 05:48) Sodium Chloride 0.9% Flush (Ns Flush) (04/15/17 06:00) Sodium Chlor 0.9% 1000 Ml Inj (Ns 1000 M (04/15/17 06:00) Ondansetron Inj (Zofran Inj) (04/15/17 06:00) Lorazepam Inj (Ativan Inj) (04/15/17 06:00) Ct Pulmonary Angiogram (04/15/17 ) Labs Laboratory Tests Test 04/15/17 05:52 White Blood Count 9.0 TH/MM3 Red Blood Count 4.79 MIL/MM3 Hemoglobin 14.6 GM/DL Hematocrit 44.1 % Mean Corpuscular Volume 92.0 FL Mean Corpuscular Hemoglobin 30.5 PG Mean Corpuscular Hemoglobin 33.1 % Concent Red Cell Distribution Width 13.7 % Platelet Count 245 TH/MM3 Mean Platelet Volume 9.2 FL Neutrophils (%) (Auto) 56.8 % Lymphocytes (%) (Auto) 30.2 % Monocytes (%) (Auto) 8.8 % Eosinophils (%) (Auto) 3.1 % Basophils (%) (Auto) 1.1 % Neutrophils # (Auto) 5.1 TH/MM3 Lymphocytes # (Auto) 2.7 TH/MM3 Monocytes # (Auto) 0.8 TH/MM3 Eosinophils # (Auto) 0.3 TH/MM3 Basophils # (Auto) 0.1 TH/MM3 CBC Comment DIFF FINAL Differential Comment D-Dimer Quantitative (PE/DVT) 0.58 MG/L FEU Sodium Level 146 MEQ/L Potassium Level 3.7 MEQ/L Chloride Level 112 MEQ/L Carbon Dioxide Level 24.3 MEQ/L Anion Gap 10 MEQ/L Blood Urea Nitrogen 21 MG/DL Creatinine 0.52 MG/DL Estimat Glomerular Filtration 119 ML/MIN Rate Random Glucose 110 MG/DL Calcium Level 9.3 MG/DL Magnesium Level 2.1 MG/DL Total Bilirubin 0.3 MG/DL Aspartate Amino Transf 18 U/L (AST/SGOT) Alanine Aminotransferase 24 U/L (ALT/SGPT) Alkaline Phosphatase 92 U/L Troponin I LESS THAN 0.02 NG/ML Total Protein 7.5 GM/DL Albumin 3.9 GM/DL MDM Medical Decision Making Medical Screen Exam Complete: Yes Emergency Medical Condition: Yes Interpretation(s) My review of EKG: Sinus tachycardia rate of 101, leftward axis with a right bundle branch block suggestive of trifascicular block. No definite evidence of acute ischemia. Compared to previous EKG from November 01, 2016, no significant change. LABS: CBC is unremarkable. CMP is unremarkable. Troponin negative. ddimer 0.58 Differential Diagnosis Arrhythmia, anxiety, PE, ACS, pneumothorax, pneumonia, other Narrative Course Medical decision making INITIAL: This a 61 year-old woman presents to the emergency department complaining of shortness of breath, lightheadedness, dizziness. Endorses some palpitations as well. Is under a lot of stress looks slightly anxious. We'll check labs, x-ray, EKG, reassess. Initial workup unremarkable. D-dimer is minimally elevated. We'll check CT pulmonary angiogram. Expected be negative. Patient will be signed out to Dr. Cervantes at 7 AM the follow-up on results of CT pulmonary angiogram, discharge if negative. Zoran Diallo MD Apr 15, 2017 05:54
[2017-04-15] MEDS ORDERED: ONDANSETRON HCL 4 MG/2 ML VIAL IV ONE (06:00)
[2017-04-15] MEDS ORDERED: SODIUM CHLORIDE 0.9% FLUSH 10 ML FLUSH IVF PRN (06:00)
[2017-04-15] MEDS ORDERED: LORazepam 2 MG/ML VIAL IV PUSH ONE (06:00)
[2017-04-15] MEDS ORDERED: SODIUM CHLOR 0.9% 1000 ML INJ 1,000 ML IV ONE (06:00)
[2017-04-15 06:02] LABS: AUTOMATED NEUTROPHIL # 5.1 TH/MM3 (1.8-7.7); BASOPHIL # 0.1 TH/MM3 (0-0.2); BASOPHIL % 1.1 % (0.0-2.0); EOSINOPHIL # 0.3 TH/MM3 (0-0.4); EOSINOPHIL % 3.1 % (0.0-4.0); HEMATOCRIT 44.1 % (35.0-46.0); HEMO FLAGS DIFF FINAL; LYMPH % 30.2 % (9.0-44.0); LYMPHOCYTE # 2.7 TH/MM3 (1.0-4.8); MEAN CORPUSCULAR HEMOGLOBIN 30.5 PG (27.0-34.0); MEAN CORPUSCULAR HGB CONC 33.1 % (32.0-36.0); MONO % 8.8 % (0.0-8.0); NEUT % 56.8 % (16.0-70.0); PLATELET COUNT 245 TH/MM3 (150-450); RED BLOOD COUNT 4.79 MIL/MM3 (4.00-5.30); RED CELL DISTRIBUTION WIDTH 13.7 % (11.6-17.2)
[2017-04-15 06:32] LABS: ALT (GPT) 24 U/L (10-53); ANION GAP 10 MEQ/L (5-15); AST (GOT) 18 U/L (15-37); BICARBONATE 24.3 MEQ/L (21.0-32.0); BLOOD UREA NITROGEN 21 MG/DL (7-18); CHLORIDE 112 MEQ/L (98-107); GLOMERULAR FILTRATION RATE 119 ML/MIN (>89); MAGNESIUM 2.1 MG/DL (1.5-2.5); POTASSIUM 3.7 MEQ/L (3.5-5.1); SODIUM (NA) 146 MEQ/L (136-145)
[2017-04-15 06:35] VITALS: O2SAT 95
[2017-04-15 06:35] LABS: ALKALINE PHOSPHATASE 92 U/L (45-117); TOTAL BILIRUBIN ADULT 0.3 MG/DL (0.2-1.0)
--- NOTE | 2017-04-15 06:37 | RADRPT ---
EXAM DATE/TIME: 04/15/2017 05:57 [facility] COMPARISON: CHEST SINGLE AP, August 13, 2014, 8:46. INDICATIONS : Shortness of breath. MEDICAL HISTORY : None. SURGICAL HISTORY : None. ENCOUNTER: Initial ACUITY: 1 day PAIN SCORE: 0/10 LOCATION: Bilateral chest FINDINGS: The lungs are clear without infiltrate, nodule, or mass. There is no appreciable pleural effusion fo r technique. Heart and mediastinum are unremarkable. CONCLUSION: No acute cardiopulmonary disease. Juan Carlos Griffin MD on April 15, 2017 at 6:35 Board Certified Radiologist. This report was verified electronically.
[2017-04-15] MEDS ORDERED: IOHEXOL 350 MG/ML 10 ML VIAL (for RAD DIAG) IV ONE (08:03)
[2017-04-15 08:11] VITALS: BP 106/53; PULSE 90; RESP 18; O2SAT 97
--- NOTE | 2017-04-15 08:26 | RADRPT ---
EXAM DATE/TIME: 04/15/2017 07:40 [facility] COMPARISON: CT ABDOMEN & PELVIS W CONTRAST, November 24, 2013, 13:35. INDICATIONS : Dyspnea, dizziness, palpat IV CONTRAST: 69 cc Omnipaque 350 (iohexol) IV RADIATION DOSE: 23.28 CTDIvol (mGy) MEDICAL HISTORY : Hypertension. SURGICAL HISTORY : Hysterectomy. ENCOUNTER: Initial ACUITY: 1 day PAIN SCALE: 0/10 LOCATION: chest TECHNIQUE: Volumetric scanning of the chest was performed using a pulmonary embolism protocol MIP images were re constructed. Using automated exposure control and adjustment of the mA and/or kV according to patien t size, radiation dose was kept as low as reasonably achievable to obtain optimal diagnostic quality images. FINDINGS: PULMONARY ARTERIES: No filling defects are seen in the pulmonary arteries through the segmental level. LUNGS: There is no consolidation or pneumothorax . No concerning pulmonary nodule is visualized. PLEURAE: There is no pleural thickening or pleural effusion. MEDIASTINUM: Calcified lymph nodes are identified in the left hilum. Heart and mediastinal structures are otherwis e unremarkable. MUSCULOSKELETAL: Intact. MISCELLANEOUS: 2.3 cm calcified splenic artery aneurysm is stable. CONCLUSION: No evidence of pulmonary embolism or acute cardiopulmonary process. Old granulomatous disease with left hilar meredith calcification and splenic granulomata. Stable calcified splenic artery aneurysm. Isaias Martell MD on April 15, 2017 at 8:23 Board Certified Radiologist. This report was verified electronically.
--- NOTE | 2017-04-15 09:10 | PD ---
Physical Exam Date Seen by Provider: Apr 15, 2017 Time Seen by Provider: 09:09 Narrative 61-year-old female came to the emergency room with history of shortness of breath. She was seen by the previous ER physician whose main concern was to rule out PE. Patient never had any chest pain. Please refer to his history and physical for further details. Sign out to me was to follow-up on the CT pulmonary angiogram limit this is negative patient could be discharged home. CAT scan is back and patient does not have any PE. I reassessed her and she is feeling better. I'll discharge her home. Data Data Last Documented VS Vital Signs Date Time Temp Pulse Resp B/P Pulse Ox O2 Delivery O2 Flow Rate FiO2 04/15/17 08:11 90 18 106/53 97 Room Air Orders Complete Blood Count With Diff (04/15/17 05:48) Comprehensive Metabolic Panel (04/15/17 05:48) D-Dimer (04/15/17 05:48) Magnesium (Mg) (04/15/17 05:48) Troponin I (04/15/17 05:48) Iv Access Insert/Monitor (04/15/17 05:48) Ecg Monitoring (04/15/17 05:48) Oximetry (04/15/17 05:48) Oxygen Administration (04/15/17 05:48) Chest, Single Ap (04/15/17 05:48) Sodium Chloride 0.9% Flush (Ns Flush) (04/15/17 06:00) Sodium Chlor 0.9% 1000 Ml Inj (Ns 1000 M (04/15/17 06:00) Ondansetron Inj (Zofran Inj) (04/15/17 06:00) Lorazepam Inj (Ativan Inj) (04/15/17 06:00) Ct Pulmonary Angiogram (04/15/17 ) Electrocardiogram (04/15/17 05:34) Iohexol 350 Inj (Omnipaque 350 Inj) (04/15/17 08:03) Labs Laboratory Tests Test 04/15/17 05:52 White Blood Count 9.0 TH/MM3 Red Blood Count 4.79 MIL/MM3 Hemoglobin 14.6 GM/DL Hematocrit 44.1 % Mean Corpuscular Volume 92.0 FL Mean Corpuscular Hemoglobin 30.5 PG Mean Corpuscular Hemoglobin 33.1 % Concent Red Cell Distribution Width 13.7 % Platelet Count 245 TH/MM3 Mean Platelet Volume 9.2 FL Neutrophils (%) (Auto) 56.8 % Lymphocytes (%) (Auto) 30.2 % Monocytes (%) (Auto) 8.8 % Eosinophils (%) (Auto) 3.1 % Basophils (%) (Auto) 1.1 % Neutrophils # (Auto) 5.1 TH/MM3 Lymphocytes # (Auto) 2.7 TH/MM3 Monocytes # (Auto) 0.8 TH/MM3 Eosinophils # (Auto) 0.3 TH/MM3 Basophils # (Auto) 0.1 TH/MM3 CBC Comment DIFF FINAL Differential Comment D-Dimer Quantitative (PE/DVT) 0.58 MG/L FEU Sodium Level 146 MEQ/L Potassium Level 3.7 MEQ/L Chloride Level 112 MEQ/L Carbon Dioxide Level 24.3 MEQ/L Anion Gap 10 MEQ/L Blood Urea Nitrogen 21 MG/DL Creatinine 0.52 MG/DL Estimat Glomerular Filtration 119 ML/MIN Rate Random Glucose 110 MG/DL Calcium Level 9.3 MG/DL Magnesium Level 2.1 MG/DL Total Bilirubin 0.3 MG/DL Aspartate Amino Transf 18 U/L (AST/SGOT) Alanine Aminotransferase 24 U/L (ALT/SGPT) Alkaline Phosphatase 92 U/L Troponin I LESS THAN 0.02 NG/ML Total Protein 7.5 GM/DL Albumin 3.9 GM/DL MDM Supervised Visit with RAYMOND: No Diagnosis Primary Impression: Shortness of breath Referrals: Primary Care Physician Additional Instruction: Please return to the ER if the condition worsens or any other new concerns. Otherwise follow-up with her primary care in couple days. Med/Other Pt SpecificInfo: No Change to Meds Scripts Albuterol 18 GM Inh (Ventolin Hfa 18 GM Inh)90 Mcg/Act Aer2 Puff INH Q4-6H PRN ( SHORTNESS OF BREATH) #1 INHALER Ref 0 Prov:Sabina Cervantes MD 04/15/17 Disposition: 01 DISCHARGE HOME Condition: Stable Sabina Cervantes MD Apr 15, 2017 09:10
[2017-04-15] MEDS ORDERED: VENTAER INH (09:16)
--- NOTE | 2017-04-15 15:28 | EKG ---
Date Performed: 04/15/2017 Time Performed: 05:34:10 PTAGE: 61 years EKG: SINUS TACHYCARDIA RIGHT BUNDLE BRANCH BLOCK LEFT ANTERIOR FASCICULAR BLOCK ABNORMAL ECG Com pared to prior tracing no significant change PREVIOUS TRACING : 11/01/2016 23.08 DOCTOR: Duc Terrell Interpretating Date/Time 04/15/2017 15:26:57
== END 2017-04-15 09:46 | disposition home or self-care (01) ==
LOC: NEPE 05:15
DX: R06.02 Shortness of breath (principal); R42 Dizziness and giddiness; R00.2 Palpitations; R11.0 Nausea; R94.31 Abnormal electrocardiogram [ECG] [EKG]; Z87.19 Personal history of other diseases of the digestive system
CPT/HCPCS: 71010; 71275; 80053; 83735; 84484; 85025; 85379; 93005; 96374; 96375; 99285; J2060; J2405; J7030; Q9967